=== PATIENT | female | born 1985 | race Caucasian/White ===

== ENCOUNTER → 2021-12-20 | Outpatient (CLI) | payer OTHER | LOC: WCC 08:12 | DX: S81.801A Unspecified open wound, right lower leg, initial encounter (principal); M79.661 Pain in right lower leg; Z72.0 Tobacco use; Z88.2 Allergy status to sulfonamides; X58.XXXA Exposure to other specified factors, initial encounter ==

== ENCOUNTER → 2021-12-27 | Outpatient (CLI) | payer OTHER | LOC: WCC 08:05 | DX: S81.801A Unspecified open wound, right lower leg, initial encounter (principal); M79.661 Pain in right lower leg; X58.XXXA Exposure to other specified factors, initial encounter; Z72.0 Tobacco use; Z88.2 Allergy status to sulfonamides ==

== ENCOUNTER → 2022-01-04 | Outpatient (CLI) | payer OTHER | END | disposition home or self-care (01) | LOC: WCC 07:37 | DX: S81.801A Unspecified open wound, right lower leg, initial encounter (principal); M79.661 Pain in right lower leg; F17.210 Nicotine dependence, cigarettes, uncomplicated; X58.XXXA Exposure to other specified factors, initial encounter | CPT/HCPCS: 87070; 87205 ==

== ENCOUNTER → 2022-01-18 | Outpatient (CLI) | payer OTHER | LOC: WCC 07:25 | DX: S81.801A Unspecified open wound, right lower leg, initial encounter (principal); Z72.0 Tobacco use; Z88.2 Allergy status to sulfonamides; X58.XXXA Exposure to other specified factors, initial encounter ==

== ENCOUNTER → 2022-01-25 | Outpatient (CLI) | payer OTHER | END | disposition home or self-care (01) | LOC: WCC 07:19 | DX: S81.801A Unspecified open wound, right lower leg, initial encounter (principal); M79.661 Pain in right lower leg; F17.210 Nicotine dependence, cigarettes, uncomplicated; X58.XXXA Exposure to other specified factors, initial encounter ==

== ENCOUNTER → 2022-02-09 | Outpatient (CLI) | payer OTHER | LOC: WCC 07:09 | DX: S81.801A Unspecified open wound, right lower leg, initial encounter (principal); F17.210 Nicotine dependence, cigarettes, uncomplicated; M79.661 Pain in right lower leg; Z88.2 Allergy status to sulfonamides; Z79.2 Long term (current) use of antibiotics ==

== ENCOUNTER → 2022-02-16 | Outpatient (CLI) | payer OTHER | LOC: WCC 07:26 | DX: S81.801D Unspecified open wound, right lower leg, subsequent encounter (principal); M79.661 Pain in right lower leg; Z72.0 Tobacco use | CPT/HCPCS: G0463 ==